=== PATIENT | female | born 1945 | race African-American/Black ===

== ENCOUNTER 2024-05-17 21:05 | Emergency (ER) | payer MEDICARE ==
[~2024-05-17] VITALS: Ht 170.2 cm; Wt 79.0 kg
[2024-05-17 21:14] VITALS: BP 140/59; PULSE 72; RESP 16; TEMP 98.1; O2SAT 98
[2024-05-17] MEDS ORDERED: IBUPROFEN 600MG TABLET PO ONE (22:00)
== END 2024-05-18 00:28 | disposition home or self-care (01) ==
LOC: ER 21:05
DX: M25.511 Pain in right shoulder (principal); M54.2 Cervicalgia; M79.89 Other specified soft tissue disorders; E11.9 Type 2 diabetes mellitus without complications; I10 Essential (primary) hypertension; Z85.9 Personal history of malignant neoplasm, unspecified
CPT/HCPCS: 71045; 73030; 93970; 99284